=== PATIENT | female | born 1995 | race Caucasian/White ===

== ENCOUNTER 2017-12-31 18:50 | Emergency (ER) | payer MEDICAID ==
[2017-12-31] MEDS: Acetaminophen/HYDROcodone 325-5 MG Tab PO ONE (19:37)
[2017-12-31] MEDS ORDERED: Acetaminophen/HYDROcodone 325-5 MG Tab PO ONE (19:41)
--- NOTE | 2018-01-03 14:52 | ER ---
DATE SEEN: 12/31/2017 TIME SEEN: The patient was seen at 1860 hours (1900 hours). HISTORY OF PRESENT ILLNESS: This 22-year-old was getting into a car, and actually slammed her right index finger in the car door. She has an avulsed part of the right artificial nail with its attached biological nail from the subungual surface, and is having severe pain and mild bleeding. The patient brought to the emergency room, somewhat hysterical, and had her hand in the air and crying loudly. When she is laid on the bed she has so much pain, then she is minimally consoled by mother and father. SOCIAL HISTORY: The patient is a smoker. ALLERGIES: She is allergic to Amoxil. MEDICATIONS: She is takin. Medroxyprogesterone. 2. Depo-Provera. 3. Naproxen. OTHER SERIOUS ILLNESSES: Negative. PHYSICAL EXAMINATION: VITAL SIGNS: Blood pressure 147/89, heart rate 99, respirations 24, oxygen saturation 100%, and temperature 36.9 degrees. GENERAL: The patient is hysterical and waving her hand around and crying tears. HEENT: Pharynx without abnormality. Pupils are normal. LUNGS: Clear. HEART: Without abnormality. ABDOMEN: Negative. EXTREMITIES: Right index finger partial avulsion of the artificial nail on top with the biological nail. A small amount of bleeding is noted, persistent. This was cleansed, put in a sink, cleansed, and then wrapped with a secure tape to compress the nail against the subungual surface. The bleeding stopped. No compromised in sensation. ASSESSMENT AND PLAN: Partial avulsion of the nail with disruption of the capillaries and stress on the nerve endings to the distal right subungual surface of the index finger. Pain is secondary to that. The patient has a low pain threshold. The patient gets Vicodin 8 tablets one q.6 hours p.r.n. pain if it does not respond to 1000 mg Tylenol and 600 mg ibuprofen q.6 hours. Follow up with doctor next week and/or as needed. The patient was advised that it will take time for this epithelialized nail to return, and perhaps, as the nail grows 0.5 mm to a 1 mm in a week and it will take 8 to 10 weeks before she has return of the nails. At this point, she is advised not to continue with artificial nails on this finger because of the proclivity to avulse again is high, and she may reconsider using artificial nails altogether. No antibiotics were provided. Keep clean. If any sign of infection, return to the emergency room and/or see her doctor earlier. Otherwise, follow up with doctor as needed. /[id number] DAGOBERTO/ERIN
== END 2017-12-31 20:01 | disposition home or self-care (01) ==
LOC: FB.ED 18:50
DX: S61.300A Unspecified open wound of right index finger with damage to nail, initial encounter (principal); Z88.1 Allergy status to other antibiotic agents; F17.200 Nicotine dependence, unspecified, uncomplicated; W23.0XXA Caught, crushed, jammed, or pinched between moving objects, initial encounter
CPT/HCPCS: 99283; A9270